=== PATIENT | male | born 1960 | race Caucasian/White ===

== ENCOUNTER 2020-11-15 17:33 | Inpatient (IN) | payer SELFPAY ==
[~2020-11-15] VITALS: Ht 172.7 cm; Wt 79.1 kg
[~2020-11-15 17:33] MED LIST: ASPI325T6 PO; CELEBREX 200MG200 MG PO; COREG 3.123.125 MG/T PO; FOLIC ACID 40400 MCG PO; IRON325 M1 PO; NORCO 325 MG-7.1 TAB PO; ULTRAM 50MG TAB50 MG PO; VITAMIN C500 MG PO
[2020-11-15] MEDS ORDERED: HCTZ 25MG TAB25 MG PO (18:34)
[2020-11-15] MEDS ORDERED: ALTACE 10MG TAB10 MG PO (18:34)
[2020-11-15] MEDS ORDERED: ZYRTEC 10MG10 MG PO (18:35)
[2020-11-15 19:15] VITALS: BP 139/73; PULSE 83; TEMP 97.7
[2020-11-15 20:59] LABS: ARTERIAL BLD GAS O2 SATURATION 97.3 % (92-100); ARTERIAL BLD GAS TCO2 CT 20.8; ARTERIAL BLOOD GAS BASE EXCESS -2.9 (-2-2); ARTERIAL BLOOD GAS HCO3 19.9 meq/L (22-26); ARTERIAL BLOOD GAS PO2 93.2 mmHg (80-100); ARTERIAL BLOOD GAS pH 7.44 (7.35-7.45)
[2020-11-15 22:54] VITALS: BP 139/78; PULSE 83; TEMP 97.7
[2020-11-15 23:26] VITALS: BP 144/71; PULSE 78; TEMP 97.8
[2020-11-16 02:03] LABS: CREATININE, serum 0.92 (0.66-1.25)
[2020-11-16 03:30] VITALS: BP 135/71; PULSE 74; TEMP 97.4
[2020-11-16 08:43] VITALS: BP 147/74; PULSE 76; TEMP 98.3
[2020-11-16 08:54] LABS: BASO % 0.2 % (0.0-2.0); EOS % 0.2 % (0-4.0); GRAN # 4.4 (1.4-6.5); LYMPH # 0.3 (1.2-3.4); MEAN CELL VOLUME 89 fl (80.0-100.0); MEAN CORPUSCULAR HEMOGLOBIN 32 pg (27.0-31.0); MEAN CORPUSCULAR HGB CONC 36 g/dl (33.0-37.0); MONO # 0.7 (0.1-0.6); MONO % 12.3 % (1.7-9.3); PLATELET COUNT 346 K/mm3 (130-400); RED BLOOD COUNT 4.39 M/mm3 (4.20-5.60); REDCELL DISTRIBUTION WIDTH-CV 13.3 % (11.5-14.5)
--- NOTE | 2020-11-16 09:00 | NUR ---
Pt awake and alert this morning, sitting in bed eating breakfast. Shift assessments complete, left Pt call light in reach, bed in lowest position.
[2020-11-16 09:05] LABS: CALCIUM 8.1 mg/dL (8.4-10.2); CREATININE, serum 0.86 (0.66-1.25); POTASSIUM 3.7 mmol/L (3.4-5.0)
[2020-11-16 12:49] LABS: CALCIUM 8.5 mg/dL (8.4-10.2); CREATININE, serum 0.79 (0.66-1.25); POTASSIUM 4.2 mmol/L (3.4-5.0)
[2020-11-16 12:52] VITALS: BP 139/75; PULSE 79; TEMP 98.1
--- NOTE | 2020-11-16 13:02 | NUR ---
PINA called into patient's room to conduct intake evaluation. Patient lives at home alone in [place], [place]. Patient denies need for assistance with activities of daily living and uses no DME. Patient has no DPOA and is not interested in filling out the paperwork at this time. Patient's PCP is Dr. Powers and he uses [facility] for medications. Patient denies questions or concerns at this time. Social work will continue to follow. Patient has no next of kin. MEIR Morrell and Olga training development director have been notified. Social work will continue to follow.
[2020-11-16 16:43] VITALS: BP 144/62; PULSE 83; TEMP 97.5
--- NOTE | 2020-11-16 18:42 | NUR ---
Pt resting in the room, no complaints today, VS have been stable.
[2020-11-16 19:05] LABS: CALCIUM 8.9 mg/dL (8.4-10.2); CREATININE, serum 0.96 (0.66-1.25); POTASSIUM 3.8 mmol/L (3.4-5.0)
[2020-11-16 20:37] VITALS: BP 159/76; PULSE 79; TEMP 99.5
[2020-11-17 00:18] VITALS: BP 174/96; PULSE 89; TEMP 97.7
[2020-11-17 04:17] VITALS: BP 101/73; PULSE 92; TEMP 97.7
[2020-11-17 07:20] LABS: HEMATOCRIT 42.5 % (42.0-52.0); HEMOGLOBIN 14.9 g/dl (13.5-18.0); MEAN CELL VOLUME 90 fl (80.0-100.0); MEAN CORPUSCULAR HEMOGLOBIN 32 pg (27.0-31.0); MEAN CORPUSCULAR HGB CONC 35 g/dl (33.0-37.0); MEAN PLATELET VOLUME 10.7 fl (7.4-10.4); PLATELET COUNT 437 K/mm3 (130-400); RED BLOOD COUNT 4.71 M/mm3 (4.20-5.60); REDCELL DISTRIBUTION WIDTH-CV 13.6 % (11.5-14.5)
[2020-11-17 08:15] VITALS: BP 146/69; PULSE 96; TEMP 97.4
--- NOTE | 2020-11-17 08:15 | NUR ---
Pt awake and alert upon entry this morning, no C/O pain at this time. Shift assessments complete, left Pt in bed, call light in reach.
[2020-11-17 11:53] VITALS: BP 150/67; PULSE 93; TEMP 98.5
[2020-11-17 15:46] VITALS: BP 154/77; PULSE 92; TEMP 98.5
--- NOTE | 2020-11-17 18:12 | NUR ---
Pt resting in the room today, no C\O pain throughout the day. VS have remained stable.
[2020-11-17 19:39] VITALS: BP 157/79; PULSE 85; TEMP 97.9
--- NOTE | 2020-11-17 20:30 | NUR ---
Initial shift assessment done- denies pain- states he is feeling ok tonight- o2 at 3L/nc with sats at 99%, o2 decreased to 2L by respiratory therapy- sats 95%. Drinking gatorade- no other requests at this time.
[2020-11-18 00:04] VITALS: BP 169/76; PULSE 87; TEMP 97.9
[2020-11-18 05:03] VITALS: BP 152/82; PULSE 81; TEMP 97.8
--- NOTE | 2020-11-18 05:55 | NUR ---
Pt somewhat restless this morning- states he needs to know what the schedule is and when he is going home-- talked with patient for awhile and he just wants to go home and feeling confined. VSS, o2 at 2L/nc with sats 96%. Pt states he just could not sleep last night. Tele on.
[2020-11-18 07:45] VITALS: BP 156/77; PULSE 84; TEMP 98.4
--- NOTE | 2020-11-18 08:55 | NUR ---
Pt awake and alert upon entry, no C/O pain at this time. Shhift assessments complete, left Pt call light in reach, bed in lowest position.
[2020-11-18] MEDS ORDERED: RT Albuterol HFA MDI IH (09:46)
[2020-11-18] MEDS ORDERED: TYLENOL 325MG325 MG PO (09:47)
[2020-11-18] MEDS ORDERED: PROAIR HFA0.09 MG/AC IH (09:48)
[2020-11-18] MEDS ORDERED: DECADRON6 MG PO (09:48)
[2020-11-18] MEDS ORDERED: MONODOX100 PO (09:48)
[2020-11-18] MEDS ORDERED: OXYGEN (09:57)
--- NOTE | 2020-11-18 10:12 | NUR ---
patient needs 2LPM oxygen while ambulating.
--- NOTE | 2020-11-18 10:57 | NUR ---
The patient is ready to d/c today. An exercise oximetry was ordered and the patient qualified for 2 liters of oxygen. The patient is self pay. PINA contacted and faxed the patient's oxygen order to Chayo at [facility]. PINA contacted the patient to review d/c plan. The patient is ready to get back home. He states that he does not have a ride home and does not have anyone that can bring him home. Due to the patient having COVID-19 positive, SW informed him of how the only transportation services available is EMS or Secure Transport and that he would have to private pay. PINA contacted Stacia at [facility] in [place]. Stacia reports that the ride would be $1,215.00 and they would require payment today. PINA updated the patient. The patient reports that he could afford this and would like to go ahead with transport from [facility]. He states that he does not have his debit card here, but could provide it to EMS once they got him home. PINA notified Stacia at [facility]. [facility] is to be here around [id number]. PINA updated Chayo at [facility]. [facility] plans to deliver a portable oxygen tank to the patient's room before the above transport time. PINA also addressed the patient's meds with him. The patient states that he will be able to afford his meds and would like them sent to [facility]. The patient requested that [facility] deliver his meds to his home. PINA contacted and faxed the patient's scripts to [facility]. [facility] reports that they can deliver the patient's meds to his home. The patient is to discharge back home today, 11/18. [facility] provided by [facility] at [phone]. PINA updated the patient's RN on the above information. No additional needs at this time.
--- NOTE | 2020-11-18 15:15 | NUR ---
Pt discharged to home, discussed discharge packet with Pt. Pt left with ambulance transportation.
== END 2020-11-18 15:15 | disposition home or self-care (01) | DRG 177 ==
LOC: MEDICAL 17:33
PROVIDERS: Nurse Practitioner Family
PROC: XW033E5 Introduction of Remdesivir Anti-infective into Peripheral Vein, Percutaneous Approach, New Technology Group 5 (ICD-10-PCS; principal; 2020-11-15)
DX: U07.1 COVID-19 (principal); J96.01 Acute respiratory failure with hypoxia; J12.82 Pneumonia due to coronavirus disease 2019; N17.9 Acute kidney failure, unspecified; E87.1 Hypo-osmolality and hyponatremia; I10 Essential (primary) hypertension; E87.6 Hypokalemia; Z88.0 Allergy status to penicillin; Z87.891 Personal history of nicotine dependence
CPT/HCPCS: 99223-AI; 99232-AI; 99233-AI; 99239; J0696; J1100; J1650; J3480; J7030